=== PATIENT | female | born 1975 | race Caucasian/White ===

== ENCOUNTER 2022-05-08 13:31 | Outpatient (CLI) | payer BC ==
[~2022-05-08 13:31] MED LIST: Iopamidol 370 76% 100 ML VIAL ONE
== END 2022-05-08 13:32 | disposition home or self-care (01) ==
LOC: CT 13:31
PROVIDERS: ATTEND Internal Medicine
DX: R10.31 Right lower quadrant pain (principal)
CPT/HCPCS: 74177; Q9967

== ENCOUNTER 2023-01-04 07:39 | Outpatient (CLI) | payer BC | END 2023-01-04 07:40 | disposition home or self-care (01) | LOC: TBSIIMAG 07:39 | PROVIDERS: ATTEND Nurse Practitioner Family | DX: M54.31 Sciatica, right side (principal); R20.2 Paresthesia of skin; M51.24 Other intervertebral disc displacement, thoracic region; M51.26 Other intervertebral disc displacement, lumbar region; M51.36 Other intervertebral disc degeneration, lumbar region; M48.061 Spinal stenosis, lumbar region without neurogenic claudication; M47.817 Spondylosis without myelopathy or radiculopathy, lumbosacral region; M48.07 Spinal stenosis, lumbosacral region | CPT/HCPCS: 72148 ==

== ENCOUNTER 2025-05-23 14:04 | Outpatient (CLI) | payer BC | END 2025-05-23 14:05 | disposition home or self-care (01) | LOC: ULT 14:04 | PROVIDERS: ATTEND Obstetrics & Gynecology | DX: N83.8 Other noninflammatory disorders of ovary, fallopian tube and broad ligament (principal) | CPT/HCPCS: 76856 ==